=== PATIENT | male | born 1970 | race Caucasian/White ===

== ENCOUNTER 2022-03-18 09:26 | Day surgery (SDC) | payer OTHER ==
[~2022-03-18] VITALS: Ht 177.8 cm; Wt 105.1 kg
[2022-03-18 10:08] VITALS: BP 126/95; PULSE 67; TEMP 97.2
[2022-03-18] MEDS ORDERED: PEPCID 20MG TAB20 MG PO (10:14)
[2022-03-18] MEDS ORDERED: ALEVE 220MG220 MG PO (10:14)
[2022-03-18] MEDS ORDERED: CLARITIN 1010 MG/TAB PO (10:15)
[2022-03-18] MEDS ORDERED: MULTIPLE VITAMI1 TA1 PO (10:16)
[2022-03-18 11:20] VITALS: BP 115/79; PULSE 82; TEMP 97.2
[2022-03-18 11:35] VITALS: BP 109/80; PULSE 85
[2022-03-18 11:50] VITALS: BP 113/73; PULSE 77
--- NOTE | 2022-03-18 12:18 | NUR ---
1120: Patient brought back into [facility] from endo procedure. Report received from OTTONIEL Lundberg. Patient vitally stable on room air. Denies pain or nausea. Requesting muffins, jello, and cranberry juice. Call light left within reach. 1135: Patient tolerating food and drink well. Denies pain or nausea. Vital signs stable on room air. 1140: Dr. Childress in to see patient 1150: Patient meets discharge criteria. IV removed without complications. Went through discharge instructions. Questions answered. 1155: Patient got dressed and escorted to the patient entrance via wheelchair. Patient got into personal vehicle and left in the care of his , Emma.
== END 2022-03-18 12:00 | disposition home or self-care (01) ==
LOC: SDCO 09:26
DX: Z12.11 Encounter for screening for malignant neoplasm of colon (principal); K62.1 Rectal polyp; F17.290 Nicotine dependence, other tobacco product, uncomplicated
CPT/HCPCS: J2704; J7030